=== PATIENT | female | born 1995 | race African-American/Black ===

== ENCOUNTER 2020-01-07 00:27 | Inpatient (IN) ==
[2020-01-07] MEDS ORDERED: MEPERIDINE 50 MG/1 ML VIAL IV PRN (00:51)
[2020-01-07] MEDS ORDERED: LACTATED RINGERS 500 ML IV PRN (00:51)
[2020-01-07] MEDS ORDERED: ONDANSETRON 4 MG/2 ML VIAL IV PRN ×2 (00:51→17:48)
[2020-01-07] MEDS ORDERED: BUTORPHANOL 2 MG/ML VIAL IV PRN (00:51)
[2020-01-07] MEDS: LACTATED RINGERS 1,000 ML IV SCH ×2 (01:22→09:30)
[2020-01-07 01:30] LABS: Apearance,Urine CLOUDY (Clear); Bacteria,Urine Moderate /HPF (Few); Bilirubin,Urine Negative (Negative); Blood, Urine Moderate mg/dL (Negative); Glucose,Urine (UA) Negative (Negative); Ketones,Urine Negative (Negative); Mucus,Urine Occasional /LPF (Occasional); Nitrite,Urine Negative (Negative); Protein,Urine 30 MG/DL; RBC,Urine 48 /HPF (0-4); Squamous Epithelial Cell,Urine Few /HPF (0-10); Urine Color Yellow (Yellow); Urine Specific Gravity 1.009 (1.001-1.035); Urine Urobilinogen < 2.0 EU/DL (0.2-1.0); WBC,Urine 182 /HPF (0-6)
[2020-01-07 01:42] LABS: Basophils % 0.2 % (0.0-0.8); Eosinophils # 0.1 10*3/uL (0.0-0.87); Eosinophils % 0.6 % (0.00-10.9); Hematocrit 33.4 VOL% (35.7-47.0); Hemoglobin 10.4 GM/DL (12.0-16.0); Immature Granulocytes % 0.6 %; Immature Granulocytes Absolute 0.08 #; Lymphocytes # 2.6 10*3/uL (1.4-4.0); Lymphocytes % 20.7 % (21.3-54.2); Mean Corpuscular HGB Conc 31.1 GM/DL (32-36); Mean Corpuscular Volume 89.5 FL (87-102); Mean Platelet Volume 11.4 FL (9.6-12.0); Monocytes % 7.6 % (1.7-12.7); Neutrophils % 70.3 % (38.7-73.9); Platelet Count 186 T/CUMM (130-400); Red Blood Count 3.73 MC/CUMM (3.8-5.5); Red Cell Distribution Width 14.5 % (9.3-17.3); White Blood Count 12.6 T/CUMM (4-12)
[2020-01-07] MEDS ORDERED: NALOXONE 0.4 MG/ML VIAL IV PRN (08:19)
[2020-01-07] MEDS ORDERED: PROMETHAZINE 25 MG/1 ML VIAL IM PRN (08:19)
[2020-01-07] MEDS ORDERED: diphenhydrAMINE 50 MG/1 ML VIAL IV PRN (08:19)
[2020-01-07] MEDS ORDERED: hydrOXYzine HCL 25 MG/1 ML VIAL IM PRN (08:19)
[2020-01-07] MEDS ORDERED: ONDANSETRON 4 MG/2 ML VIAL IV ONE (08:19)
[2020-01-07] MEDS ORDERED: fentaNYL 2 MCG/ROPIV 0.2% EPID 100 ML EPIDURAL SCH (08:30)
[2020-01-07] MEDS ORDERED: OXYTOCIN/LR 20 UNIT/1,000 ML BAG IV SCH (10:30)
[2020-01-07] MEDS ORDERED: FAMOTIDINE 20 MG/2 ML VIAL IV ONE (10:54)
[2020-01-07] MEDS ORDERED: CITRIC ACID/SODIUM CITRATE 30 ML UDCUP PO ONE (10:54)
[2020-01-07] MEDS: ePHEDrine 50 MG/ML VIAL IV PRN ×2 (12:09→12:15)
[2020-01-07] MEDS ORDERED: AMPICILLIN INJ 2,000 MG in SODIUM CHLORIDE 0.9% 100 ML IV ONE (13:04)
[2020-01-07] MEDS ORDERED: AMPICILLIN 2,000 MG VIAL ONE (13:04)
[2020-01-07 13:21] LABS: Apearance,Urine CLEAR (Clear); Bilirubin,Urine Negative (Negative); Blood, Urine Negative (Negative); Glucose,Urine (UA) Negative (Negative); Hyaline Casts,Urine 1 /LPF (0-3); Ketones,Urine Negative (Negative); Mucus,Urine Few /LPF (Occasional); Nitrite,Urine Negative (Negative); Protein,Urine Negative; RBC,Urine <1 /HPF (0-4); Squamous Epithelial Cell,Urine Occasional /HPF (0-10); Urine Color Yellow (Yellow); Urine Specific Gravity 1.019 (1.001-1.035); WBC,Urine 2 /HPF (0-6)
[2020-01-07] MEDS ORDERED: OXYTOCIN 10 UNIT/ML VIAL IM ONE (15:49)
[2020-01-07] MEDS ORDERED: OXYTOCIN/LR 30 UNIT/1,000 ML BAG IV ONE (15:49)
[2020-01-07] MEDS ORDERED: OXYTOCIN/LR 20 UNIT/1,000 ML BAG IV ONE ×2 (15:54→17:48)
[2020-01-07] MEDS ORDERED: TRANEXAMIC ACID 1,000 MG/10 ML VIAL ONE (15:54)
[2020-01-07] MEDS ORDERED: METHYLERGONOVINE 0.2 MG/1 ML AMP ONE (15:54)
[2020-01-07] MEDS ORDERED: miSOPROStoL 200 MCG TABLET ONE (15:54)
[2020-01-07] MEDS ORDERED: CARBOPROST TROMETHAMINE 250 MCG/ML AMP IM ONE (15:55)
[2020-01-07] MEDS ORDERED: ceFAZolin 3,000 MG in SYRINGE 1 EACH IV ONE (16:00)
[2020-01-07 17:36] LABS: Cord Arterial Blood HCO3 21.4 MMOL/L
[2020-01-07 17:39] LABS: Cord Venous Blood HCO3 22.5 MMOL/L; Cord Venous Blood PCO2 40.5 MMHG; Cord Venous Blood PO2 32.4
[2020-01-07] MEDS ORDERED: SIMETHICONE CHEW 80 MG TABLET PO PRN (17:48)
[2020-01-07] MEDS ORDERED: ACETAMINOPHEN 325 MG TABLET PO PRN (17:48)
[2020-01-07] MEDS ORDERED: RHO(D) IMMUNE GLOBULIN 300 MCG SYRINGE IM ONE (17:48)
[2020-01-07] MEDS ORDERED: LACTATED RINGERS 1,000 ML IV SCH (18:00)
[2020-01-07] MEDS ORDERED: ACETAMINOPHEN 500 MG TABLET PO ONE (18:01)
[2020-01-07] MEDS ORDERED: SODIUM BICARBONATE 10 MEQ/10 ML SYRINGE IV ONE (18:06)
[2020-01-07] MEDS ORDERED: ONDANSETRON 4 MG/2 ML VIAL ONE (18:07)
[2020-01-07] MEDS ORDERED: MORPHINE 10 MG/10 ML VIAL ONE (18:07)
[2020-01-07] MEDS ORDERED: fentaNYL 100 MCG/2 ML VIAL ONE (18:07)
[2020-01-07] MEDS ORDERED: PHENYLEPHRINE 1 MG/10 ML SYRINGE IV ONE (18:08)
[2020-01-07] MEDS ORDERED: LIDOCAINE MPF 2% /EPI 20 ML VIAL ONE (18:08)
[2020-01-07] MEDS: DOCUSATE SODIUM 100 MG CAPSULE PO SCH (22:45)
[2020-01-07] MEDS ORDERED: diphenhydrAMINE CAP 25 MG CAPSULE PO PRN (23:42)
[2020-01-08] MEDS: ceFAZolin 1,000 MG in SYRINGE 1 EACH IV SCH ×2 (01:05→10:12)
[2020-01-08 04:52] LABS: Basophils % 0.2 % (0.0-0.8); Eosinophils % 0.1 % (0.00-10.9); Hematocrit 27.5 VOL% (35.7-47.0); Hemoglobin 8.6 GM/DL (12.0-16.0); Immature Granulocytes % 0.6 %; Lymphocytes # 1.6 10*3/uL (1.4-4.0); Mean Corpuscular HGB Conc 31.3 GM/DL (32-36); Mean Corpuscular Volume 89.6 FL (87-102); Mean Platelet Volume 11.3 FL (9.6-12.0); Monocytes % 7.4 % (1.7-12.7); Neutrophils % 81.7 % (38.7-73.9); Platelet Count 168 T/CUMM (130-400); Red Blood Count 3.07 MC/CUMM (3.8-5.5); Red Cell Distribution Width 14.6 % (9.3-17.3); White Blood Count 16.1 T/CUMM (4-12)
[2020-01-08] MEDS: IBUPROFEN 800 MG TABLET PO PRN ×2 (07:30→18:40)
[2020-01-08] MEDS: DOCUSATE SODIUM 100 MG CAPSULE PO SCH ×2 (10:12→21:17)
[2020-01-08] MEDS: MAGNESIUM HYDROXIDE SUSP 30 ML UDCUP PO PRN ×2 (10:12→21:17)
[2020-01-08] MEDS: MULTIVITAMIN (PRENATAL) TABLET PO SCH (10:12)
[2020-01-08] MEDS: METOCLOPRAMIDE 10 MG TABLET PO SCH (10:12)
[2020-01-08] MEDS ORDERED: HydrOXYzine PAMOATE 25 MG CAPSULE PO PRN (12:02)
[2020-01-09] MEDS: METOCLOPRAMIDE 10 MG TABLET PO SCH ×2 (00:37→10:06)
[2020-01-09 07:48] VITALS: BP 114/72
[2020-01-09] MEDS: IBUPROFEN 800 MG TABLET PO PRN (08:29)
[2020-01-09] MEDS: MULTIVITAMIN (PRENATAL) TABLET PO SCH (10:06)
[2020-01-09] MEDS: DOCUSATE SODIUM 100 MG CAPSULE PO SCH (10:06)
== END 2020-01-09 14:50 | disposition home or self-care (01) | DRG 540 ==
LOC: N.LD 00:27 → N.OB 22:45
PROVIDERS: ADMIT Obstetrics & Gynecology; ATTEND Obstetrics & Gynecology
PROC: LDCSECT (ICD-10-PCS; 2020-01-07 16:50)